=== PATIENT | male | born 1965 | race Caucasian/White ===

== ENCOUNTER 2023-05-24 13:06 | Emergency (ER) | payer OTHER, SELFPAY ==
--- NOTE | ~2023-05-24 | CT_ITS ---
EXAMINATION: CT abdomen pelvis w con DATE: 05/24/2023 15:33 INDICATION: Left abdominal pain. Fall. TECHNIQUE: Computed tomography (CT) of the abdomen and pelvis was performed with 100 mL Omnipaque 350 intravenous contrast. Automated exposure control and iterative reconstruction technique were employe d. The dose-length product was 506.85 mGy-cm. COMPARISON: None. FINDINGS: The visualized portions of the lung bases demonstrate mild atelectasis. No pleural effusion . The heart size is normal. No pericardial effusion. There is a small sliding hiatal hernia. The live r, gallbladder, spleen, pancreas, adrenal glands, and kidneys are normal. There are bilateral inguina l hernias containing fat. The prostate is mildly enlarged. There are no dilated loops of bowel. The a ppendix is normal. There is an umbilical hernia containing fat. There are no pathologically enlarged lymph nodes. There is no free intraperitoneal fluid. There is mild thoracic and lumbar spondylosis. T here are chronic bilateral L5 pars defects. There is 6 mm anterolisthesis of L5 on S1. IMPRESSION: 1. Umbilical hernia containing fat. 2. Bilateral inguinal hernias containing fat. 3. Small sliding hiatal hernia. Reviewed, dictated and finalized at location E.
[2023-05-24 13:13] VITALS: BP 129/81; PULSE 54; RESP 18; TEMP 36.6; O2SAT 100
[2023-05-24 13:34] LABS: Basophils Percent Auto 0.6 % (0.2-1.2); Eosinophils Absolute Auto 0.1 K/mm3 (0-0.3); Eosinophils Percent Auto 2.1 % (0-4.4); Hematocrit 48.1 % (42.0-52.0); Hemoglobin 16.1 g/dL (14.0-18.0); Immature Granulocyte Absolute 0.02 K/mm3 (0.00-0.031); Immature Granulocyte Percent A 0.4 % (0-0.5); Lymphocytes Absolute Auto 1.82 K/mm3 (0.9-3.2); Lymphocytes Percent Auto 34.7 % (18.3-44.2); Mean Corpuscular HGB Conc 33.5 g/dl (32-36); Mean Corpuscular Hemoglobin 31.5 pg (26-34); Mean Corpuscular Volume 94.1 fl (80-100); Mean Platelet Volume 9.6 fl (7.4-10.4); Monocytes Absolute Auto 0.4 K/mm3 (0.1-0.6); Monocytes Percent Auto 7.4 % (2.6-8.5); Neutrophils Absolute Auto 2.9 K/mm3 (1.3-6.7); Neutrophils Percent Auto 54.8 % (45.5-73.1); Platelet Count Result 203 k/mm3 (150-375); Red Blood Count 5.11 M/mm3 (4.6-6.20); Red Cell Distribution Width 12.6 % (11.5-14.5); White Blood Count 5.3 K/mm3 (4.5-10.0)
[2023-05-24 13:45] LABS: Alanine Aminotransferase 25 U/L (6-50); Albumin Level 4.2 g/dL (3.5-5.1); Alkaline Phosphatase 68 U/L (38-126); Anion Gap 7 mmol/L (8-16); Aspartate Amino Transferase 25 U/L (17-59); Bilirubin,Total 0.7 mg/dL (0.2-1.3); Blood Urea Nitrogen 13 mg/dL (9-20); Calcium 8.8 mg/dL (8.4-10.2); Carbon Dioxide 27 mmol/L (22-30); Chloride 104 mmol/L (98-107); Estimated CRCL calculation 62 ml/min; Estimated Glomerular Filt Rate > 60; Glucose 103 mg/dL (65-110); Lipase 47 U/L (23-300); Sodium 138 mmol/L (137-145)
[2023-05-24 14:31] LABS: Appearance Urine Turbid (Clear); Bacteria Urine None Seen /hpf; Bilirubin Urine Negative (Negative); Blood Urine Negative (Negative); Color Urine Dark Yellow (Yellow); Glucose Urine UA Negative (Negative); Ketones Urine Trace mg/dL (Negative); Leukocyte Esterase Ur Negative LEU/UL (Negative); Need Manual Microscopic Reviewed; Nitrate Urine Negative (Negative); Protein Urine Trace mg/dL (Negative); RBC Urine 0-2 /hpf (0-2); Squamous Epithelial Cell Urine Occasional /hpf (Few); WBC Urine 0-5 /hpf
[2023-05-24 14:32] LABS: Add Urine Microscopic? YES; Specific Grav Ur 1.037 (1.001-1.035)
--- NOTE | 2023-05-24 14:41 | ECG_ITS ---
Measurements Intervals [place] Rate: 50 P: 12 MT: 232 QRS: -8 QRSD: 93 T: -7 QT: 423 QTc: 386 Interpretive Statements SINUS BRADYCARDIA WITH FIRST DEGREE AV BLOCK ABNORMAL ECG NO PREVIOUS ECG AVAILABLE FOR COMPARISON Electronically Signed On 05-25-2023 11:54:09 CDT by Gavin Samuels M.D.
--- NOTE | 2023-05-24 14:41 | ED.BACK ---
HPI - Back Pain/Injury General Chief Complaint: Back Pain/Injury Stated Complaint: back pain Time Seen by Provider: 05/24/23 14:21 History of Present Illness HPI Narrative: Patient is a 58-year-old gentleman presenting with left flank pain. Patient states that he tripped and rolled down a hill several days ago. He landed on his back and has had persistent left flank pain since that time. He has been using Aleve with minimal relief. He was seen at urgent care today and was told that his plain films showed kidney trauma and he was advised to come here for further evaluation. States that they gave him a shot of pain medicine which is significantly helped with his pain. He denies striking his head or loss of consciousness. No hematuria, dysuria, difficulty with urination. No nausea or vomiting. Denies abdominal pain. No chest pain or difficulty breathing. No further complaints. Review of Systems Review of Systems: All systems reviewed & are unremarkable except as noted in HPI and below Exam Narrative: GENERAL: Well-appearing, well-nourished, and in no acute distress. HEAD: Normocephalic, atraumatic. EYES: PERRLA and EOMI. ENT: Nares clear, no rhinorrhea or epistaxis. Mucous membranes moist. NECK: Supple. CHEST: No respiratory distress. HEART: Regular rate and rhythm ABDOMEN: Soft, nontender EXTREMITIES: Normal range of motion. No edema. SKIN: Warm, dry, no rash. NEURO: No focal deficits. Alert and oriented x3. PSYCH: Normal mood and affect. Course Vital Signs Vital signs: Vital Signs Temperature 97.8 F 05/24/23 13:13 Pulse Rate 54 L 05/24/23 13:13 Respiratory Rate 18 05/24/23 13:13 Blood Pressure 129/81 05/24/23 13:13 Pulse Oximetry 100 05/24/23 13:13 Oxygen Delivery Room Air 05/24/23 13:13 Temperature 97.8 F 05/24/23 13:13 Pulse Rate 60 05/24/23 16:38 Respiratory Rate 16 05/24/23 16:38 Blood Pressure 122/87 05/24/23 16:38 Pulse Oximetry 100 05/24/23 16:38 Oxygen Delivery Room Air 05/24/23 13:13 MDM - Back Pain/Injury MDM Narrative Medical decision making narrative: Patient is a 58-year-old male presenting with left flank pain after a fall. Vitals are stable. Exam remarkable for the above. Blood work is unremarkable. Normal renal function. CT abdomen pelvis shows fat-containing hernias but no other acute abnormalities. Specifically his kidneys are unremarkable. There is no evidence of trauma or hydronephrosis as reported by urgent care. On reevaluation, the patient feels well and he is asking to go home which I think is reasonable. Discussed appropriately supportive care and recommended PCP follow-up. Patient voices understanding and is agreeable with plan. Appropriate return precautions given. Discharged in stable condition. Differential Diagnosis Differential diagnosis: Likely strain of lumbar region and other (Musculoskeletal pain, flank trauma) Medical Records Attestation: I reviewed the patient's medical records. Lab Data Attestation: I reviewed the patient's lab results. 05/24/23 13:27 05/24/23 13:27 Labs: Lab Results 05/24/23 05/24/23 Range/Units 13:27 14:02 WBC 5.3 (4.5-10.0) K/mm3 RBC 5.11 (4.6-6.20) M/mm3 Hgb 16.1 (14.0-18.0) g/dL Hct 48.1 (42.0-52.0) % MCV 94.1 (80-100) fl MCH 31.5 (26-34) pg MCHC 33.5 (32-36) g/dl RDW 12.6 (11.5-14.5) % Plt Count 203 (150-375) k/mm3 MPV 9.6 (7.4-10.4) fl Immature Gran % (Auto) 0.4 (0-0.5) % Neut % (Auto) 54.8 (45.5-73.1) % Lymph % (Auto) 34.7 (18.3-44.2) % [place] % (Auto) 7.4 (2.6-8.5) % Eos % (Auto) 2.1 (0-4.4) % Baso % (Auto) 0.6 (0.2-1.2) % Lymph # (Auto) 1.82 (0.9-3.2) K/mm3 [place] # (Auto) 0.4 (0.1-0.6) K/mm3 Eos # (Auto) 0.1 (0-0.3) K/mm3 Baso # (Auto) 0.0 (0.0-0.1) K/mm3 Abs Immat Gran (auto) 0.02 (0.00-0.031) K/mm3 Absolute Neuts (auto) 2.9 (1.3-6.7) K/mm3 Absolute Nucleated
[2023-05-24 16:38] VITALS: BP 122/87; PULSE 60; RESP 16; O2SAT 100
== END 2023-05-24 16:39 | disposition home or self-care (01) ==
PROVIDERS: Emergency Provider Emergency Medicine; PCP Nurse Practitioner Family
DX: M54.50 Low back pain, unspecified (principal); R94.31 Abnormal electrocardiogram [ECG] [EKG]
CPT/HCPCS: 36415; 74177; 80053; 81001; 83690; 85025; 93005; 99284; Q9967